=== PATIENT | female | born 1970 | race Caucasian/White ===

== ENCOUNTER 2020-10-23 15:27 | Inpatient (IN) ==
[2020-10-23] MEDS ORDERED: 0.9 % SODIUM CHLORIDE 1,000 ML IV ONE (15:46)
[2020-10-23] MEDS ORDERED: ONDANSETRON 4 MG/2 ML VIAL IV ONE ×2 (15:46→19:21)
[2020-10-23 16:40] LABS: POC Blood Urea Nitrogen 8 mg/dL (6-20); POC CO2 30 mmol/L (22-30); POC Calcium, Ionized 0.97 mmEq/L (1.16-1.32); POC Chloride 100 mEq/L (96-108); POC Creatinine 0.7 mg/dL (0.6-1.2); POC Glucose, Random 105 mg/dL (70-105); POC Hematocrit 32 % (36-48); POC Potassium 2.9 mEql/L (3.3-5.1); POC Sodium 138 mEq/L (133-145)
[2020-10-23] MEDS ORDERED: POTASSIUM CHLORIDE 20 MEQ in DEXTROSE 5% IN WATER 250 ML IV ONE (16:52)
[2020-10-23 17:06] LABS: Basophils # (Auto) 0 K/mcL (0.00-0.20); Basophils % (Auto) 0 % (0.0-2.0); Eosinophils # (Auto) 0 K/mcL (0.00-0.70); Eosinophils % (Auto) 0 % (0.0-7.0); Hemoglobin 12.3 g/dL (12.0-15.0); Lymphocytes # (Auto) 0.67 K/mcL (1.50-4.80); Mean Corpuscular HGB Conc 33.2 g/dL (31.0-36.0); Mean Platelet Volume 10.2 fL (7.4-10.4); Monocytes # (Auto) 0.26 K/mcL (0.10-0.90); Monocytes % (Auto) 8.6 % (1.0-12.0); Neutrophils % (Auto) 69.4 % (38.0-78.0); Platelet Count 132 K/mcL (140-440); Red Cell Distribution Width 13.1 % (11.5-14.5)
[2020-10-23 17:15] LABS: ALT/SGPT 23 U/L (<40); AST/SGOT 34 U/L (<32); Albumin 3.4 gm/dL (3.2-5.2); Albumin/Globulin Ratio 1.3 (1.0-2.3); Alkaline Phosphatase 59 U/L (39-117); Bilirubin,Total 0.7 mg/dL (0.1-1.0); Blood Urea Nitrogen 8 mg/dL (6-20); Calcium 8.1 mg/dL (8.6-10.4); Carbon Dioxide 29 mmol/L (22-30); Chloride 100 mmol/L (96-108); Globulin 2.6 gm/dL (2.2-3.7); Glomerular Filtration Rate 102; Glucose 106 mg/dL (70-105)
[2020-10-23] MEDS ORDERED: PROMETHAZINE 25 MG/ML VIAL IV ONE (17:30)
--- NOTE | 2020-10-23 19:50 | Emergency Department Note ---
Nausea/Vomiting/Diarrhea HPI General Chief complaint: Nausea/Vomiting/Diarrhea Stated complaint: N/V/D x7 days Time Seen by Provider: 10/23/20 15:45 Source: patient Mode of arrival: ambulatory Limitations: no limitations History of Present Illness HPI Narrative: Narrative: 50-year-old female presents with 7-day history of nausea, vomiting, diarrhea, and generally feeling poor. Has body aches and dry cough. No shortness of breath or chest pain. No difficulty breathing. She has had a fever of 101. States she just feels absolutely miserable and hard to explain. She was seen here yesterday and was hydrated and given nausea medication check. Her potassium was little bit low. They sent her home. She has not been tested for Covid. States she lives at home and she feels so terrible that she is afraid to stay home alone. Is very tearful. States she cannot describe it she is just miserable. No abdominal pain. No headache. No dysuria or frequency. No home treatments. Related Data Home Medications Medication Instructions Recorded Confirmed ferrous gluconate 324 mg (37.5 mg 324 mg PO QDAY tab 08/21/19 10/04/20 iron) tablet omeprazole magnesium 20 mg 20 mg PO QDAY 08/21/19 10/04/20 tablet,delayed release Previous Rx's Medication Instructions Recorded tolterodine 4 mg capsule,extended 4 mg PO QDAY #30 cap 02/26/20 release 24 hr potassium chloride 10 mEq 20 meq PO .COMPLEX #90 tab 07/27/20 tablet,extended release atorvastatin 20 mg tablet See Rx Instructions .ROUTE 08/22/20 .COMPLEX #30 unknown measurement unit code: tablet benazepril 10 mg tablet See Rx Instructions .ROUTE 08/22/20 .COMPLEX #60 unknown measurement unit code: tablet trazodone 50 mg tablet 100 mg PO QHS #60 tab 08/22/20 sertraline 100 mg tablet See Rx Instructions .ROUTE 08/23/20 .COMPLEX #60 tablet metoprolol succinate 50 mg See Rx Instructions .ROUTE 09/20/20 tablet,extended release 24 hr .COMPLEX #60 tablet hydrochlorothiazide 25 mg tablet See Rx Instructions .ROUTE 09/26/20 .COMPLEX #30 tab metformin 500 mg tablet,extended 500 mg PO QDAY #30 tab 10/04/20 release 24 hr sulfamethoxazole 800 1 tab PO BID 7 Days #14 tab 10/04/20 mg-trimethoprim 160 mg tablet ondansetron 4 mg PO Q6H PRN #12 tab 10/23/20 Allergies Allergy/AdvReac Type Severity Reaction Status Date / Time bupropion [From Wellbutrin] Allergy Unknown makes pt Verified 10/23/20 02:30 angry and jittery Review of Systems ROS ROS Narrative: Narrative: All systems ED: reviewed and negative except as stated. [facility] Narrative Patient History Narrative: Narrative: Medical/Surgical/Family History All Active Problems (Updated 10/23/20 @ 20:30 by PASCALE Luther) Gastroenteritis (Acute) Hypokalemia (Acute) Intractable nausea and vomiting (Acute) Diarrhea (Acute) URI (upper respiratory infection) (Acute) Morbid obesity (Acute) Depression (Chronic) Chronic headaches (Chronic) Allergic rhinitis (Chronic) Insulin resistance (Chronic) Fatigue (Chronic) Contact with and (suspected) exposure to mold (Chronic) Other allergic rhinitis (Chronic) Anemia, iron deficiency (Chronic) Edema, peripheral (Chronic) Urinary frequency (Chronic) Spleen enlarged (Chronic) Hyperlipidemia (Chronic) Anxiety (Chronic) Headache, tension type, chronic (Chronic) Hypertension (Chronic) Heartburn (Chronic) Hematuria (Chronic) Medical History Allergic rhinitis (Chronic) Anemia, iron deficiency (Chronic) Anxiety (Chronic) Chronic headaches (Chronic) Edema, peripheral (Chronic) Fatigue (Chronic) Headache, tension type, chronic (Chronic) Heartburn (Chronic) Hyperlipidemia (Chronic) Hypertension (Chronic) Insulin resistance (Chronic) Morbid obesity (Acute) Muscle spasms of neck (Resolved) Other allergic rhinitis (Chronic) Sinusitis (Resolved) Spleen enlarged (Chronic) Urinary frequency (Chronic) Urinary tract infection (Inactive) Wellness examination (Inactive) Surgical History History of section (Inactive 10/25/91) Family History Father Bladder cancer Heart disease Mother Hypertension Grandmother Breast cancer Maternal Colon cancer Unknown side Grandfather ETOH abuse Maternal Grandfather Diabetes mellitus Paternal Family/Other Colon cancer aunt Social History Smoking Status: Never smoker Alcohol Intake Frequency: does not drink Substance Use: does not use Exam Narrative Narrative: Narrative: General Limitations: no limitations General appearance: Present alert, malaise, obese and tearful Head Head: Present atraumatic and normocephalic Eye Eye: Present normal appearance; Absent conjunctival injection ENT ENT: Present mucous membranes moist Chest Chest: Present symmetric chest wall rise Respiratory Respiratory: Present normal lung sounds bilaterally; Absent respiratory distress, rales/crackles, wheezes, stridor and accessory muscle use Cardiovascular Cardiovascular: Present regular rate and normal heart sounds Adbominal Abdominal: Present soft and normal bowel sounds; Absent distention, tenderness, guarding, rebound and rigidity Neurological Neurological: Present alert and oriented X3 Psychiatric Psychiatric: Present normal affect, normal mood and tearful; Absent suicidal ideation Skin Skin: Present warm (WNL), dry, intact and normal color Course Course Course Narrative: Patient was given a dose of Zofran and still has nausea and vomiting. Was given a dose of Phenergan but nausea and vomiting continues. Given additional dose of Zofran. Still complaining of nausea. Covid is pending. Vital Signs Vital signs: Vital Signs Temperature 99.7 F H 10/23/20 15:28 Pulse Rate 109 H 10/23/20 15:28 Respiratory Rate 22 10/23/20 15:28 Blood Pressure 144/90 10/23/20 15:28 Pulse Oximetry (%) 96 10/23/20 15:28 Temperature 99.7 F H 10/23/20 15:28 Pulse Rate 106 H 10/23/20 19:49 Respiratory Rate 24 H 10/23/20 19:49 Blood Pressure 114/67 10/23/20 19:49 Pulse Oximetry (%) 94 10/23/20 19:49 [facility] MDM Narrative Medical decision making narrative: Narrative: Patient has continued to have intractable nausea and vomiting despite multiple doses of Zofran and some Phenergan. At 2029 I did speak with hospitalist, Dr. Simms who agrees to accept this patient. I will place ED transition orders for observation. Plan is for IV hydration and antiemetics. This is presumed Covid positive and rapid is pending. Lab Data Lab results reviewed: Yes I reviewed the patient's lab results. Result diagrams: 10/23/20 16:04 10/23/20 16:04 Labs: Lab Results 10/23/20 10/23/20 10/23/20 Range/Units 16:04 16:04 16:04 WBC 3.0 L (4.5-11.0) K/mcL RBC 4.30 (4.00-5.20) M/mcL Hgb 12.3 (12.0-15.0) g/dL Hct 37.0 (36.0-48.0) % POC Hct 32 L (36-48) % MCV 86.0 (80.0-100.0) fL MCH 28.6 (26.0-34.0) pg MCHC 33.2 (31.0-36.0) g/dL RDW 13.1 (11.5-14.5) % Plt Count 132 L (140-440) K/mcL MPV 10.2 (7.4-10.4) fL Neut % (Auto) 69.4 (38.0-78.0) % Lymph % (Auto) 22.0 (15.0-49.0) % [place] % (Auto) 8.6 (1.0-12.0) % Eos % (Auto) 0 (0.0-7.0) % Baso % (Auto) 0 (0.0-2.0) % Lymph # (Auto) 0.67 L (1.50-4.80) K/mcL [place] # (Auto) 0.26 (0.10-0.90) K/mcL Eos # (Auto) 0 (0.00-0.70) K/mcL Baso # (Auto) 0 (0.00-0.20) K/mcL Absolute Neutrophils 2.11 (1.80-8.00) K/mcL VBG Lactic Acid 1.0 (0.5-2.0) mmol/L POC Sodium 138 (133-145) mEq/L Sodium 139 (133-145) mmol/L POC Potassium 2.9 L* (3.3-5.1) mEql/L Potassium 3.1 L (3.3-5.1) mmol/L POC Chloride 100 (96-108) mEq/L Chloride 100 (96-108) mmol/L Carbon Dioxide 29 (22-30) mmol/L POC Total CO2 30 (22-30) mmol/L Anion Gap 10.0 (8.0-16.0) POC BUN 8 (6-20) mg/dL BUN 8 (6-20) mg/dL Creatinine 0.7 (0.6-1.1) mg/dL POC Creatinine 0.7 (0.6-1.2) mg/dL GFR Calculation 102 Glucose 106 H (70-105) mg/dL POC Glucose 105 (70-105) mg/dL Calcium 8.1 L (8.6-10.4) mg/dL POC WB Ioniz Calcium 0.97 L (1.16-1.32) mmEq/L Total Bilirubin 0.7 (0.1-1.0) mg/dL AST 34 H (<32) U/L ALT 23 (<40) U/L Alkaline Phosphatase 59 (39-117) U/L Total Protein 6.0 (5.9-8.4) gm/dL Albumin 3.4 (3.2-5.2) gm/dL Globulin 2.6 (2.2-3.7) gm/dL Albumin/Globulin Ratio 1.3 (1.0-2.3) Lipase 30 (7-60) U/L Radiology Data Radiology results reviewed: Yes I reviewed the patient's radiology results. Discharge Plan Patient/Caregiver Discharge Instructions Pt seen by GENERAL OPHTHALMOLOGIST/PA only: Yes Clinical Impression: Intractable nausea and vomiting, Diarrhea, URI (upper respiratory infection) Patient Disposition: Xfer As Outpt/Obs ([facility]) Condition: Fair Follow up with: Man Santos ARNP [Primary Care Provider] - Prescriptions: No Action sertraline 100 mg tablet See Rx Instructions .ROUTE .COMPLEX Qty: 60 RF: 4 sulfamethoxazole-trimethoprim [Bactrim DS] 800-160 mg tablet 1 tab PO BID 7 Days Qty: 14 RF: 0 metformin 500 mg tablet extended release 24 hr 500 mg PO QDAY Qty: 30 RF: 0 tolterodine 4 mg capsule,extended release 24hr 4 mg PO QDAY Qty: 30 RF: 11 potassium chloride 10 mEq tablet extended release 20 meq PO .COMPLEX Qty: 90 RF: 3 trazodone 50 mg tablet 100 mg PO QHS Qty: 60 RF: 3 atorvastatin 20 mg tablet See Rx Instructions .ROUTE .COMPLEX Qty: 30 RF: 3 benazepril 10 mg tablet See Rx Instructions .ROUTE .COMPLEX Qty: 60 RF: 1 metoprolol succinate 50 mg tablet extended release 24 hr See Rx Instructions .ROUTE .COMPLEX Qty: 60 RF: 0 hydrochlorothiazide 25 mg tablet See Rx Instructions .ROUTE .COMPLEX Qty: 30 RF: 0 omeprazole magnesium 20 mg tablet,delayed release 20 mg tablet,delayed release (DR/EC) 20 mg PO QDAY RF: 0 ferrous gluconate 324 mg (37.5 mg iron) tablet 324 mg PO QDAY RF: 0 ondansetron 4 mg tablet,disintegrating 4 mg PO Q6H PRN (Reason: nausea and vomiting) Qty: 12 RF: 0
[2020-10-23] MEDS ORDERED: ONDANSETRON 4 MG/2 ML VIAL IV PRN (20:41)
[2020-10-23] MEDS ORDERED: ACETAMINOPHEN 325 MG TABLET PO PRN ×3 (20:41→22:42)
[2020-10-23] MEDS ORDERED: PROMETHAZINE 25 MG/ML VIAL IV PRN ×2 (20:41→22:42)
[2020-10-23] MEDS ORDERED: 0.9 % SODIUM CHLORIDE 1,000 ML IV SCH ×2 (20:45→21:00)
--- NOTE | 2020-10-23 20:59 | Internal Med History&Physical ---
HPI History of Present Illness Patient information: Note initiated : 10/23/20 at 8:59 pm Service Date, if different from initiated Date: [] Patient: Lisa Cruz a 50 y/o F admitted on for N/V/D x7 days. Chief Complaint: Nausea vomiting diarrhea History of present illness: Ms. Cruz is a 50 year old F morbidly obese with a BMI over 53 who presents the second time with symptoms of worsening nausea vomiting along with diarrhea weakness that has evolved over the last 8 to 9 days. 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 She denies any precipitating events but endorses to gradually progressive loss of appetite along with nausea and not feeling well unable to take anything by mouth. Symptoms progressed to the point she could barely function. She presented to the ER initial work-up was unremarkable during the prior visit and was discharged home however with worsening symptoms he presents again. During today's work-up she was found to be Covid positive along with bilateral chest infiltrates. Abdominal CT was unremarkable for acute abdominal process. Patient was started on dexamethasone/remdesivir and subsequently hospitalist service was consulted for Covid pneumonia. At the time of evaluation patient is alert and oriented. She was able to answer most the questions. She denies recent exposure to sick contacts. She lives alone. She denies loss of taste or smell but has been generally feeling poorly. She denies joint aches/skin rash/headache, photophobia or vision changes. Review of systems A 10 point review system was performed and is negative except for ones discussed above PFSH PFSH All Active Problems (Updated 10/23/20 @ 20:30 by Landy Rivas [facility]) Gastroenteritis (Acute) Hypokalemia (Acute) Intractable nausea and vomiting (Acute) Diarrhea (Acute) URI (upper respiratory infection) (Acute) Morbid obesity (Acute) Depression (Chronic) Chronic headaches (Chronic) Allergic rhinitis (Chronic) Insulin resistance (Chronic) Fatigue (Chronic) Contact with and (suspected) exposure to mold (Chronic) Other allergic rhinitis (Chronic) Anemia, iron deficiency (Chronic) Edema, peripheral (Chronic) Urinary frequency (Chronic) Spleen enlarged (Chronic) Hyperlipidemia (Chronic) Anxiety (Chronic) Headache, tension type, chronic (Chronic) Hypertension (Chronic) Heartburn (Chronic) Hematuria (Chronic) Medical History Allergic rhinitis (Chronic) Anemia, iron deficiency (Chronic) Anxiety (Chronic) Chronic headaches (Chronic) Edema, peripheral (Chronic) Fatigue (Chronic) Headache, tension type, chronic (Chronic) Heartburn (Chronic) Hyperlipidemia (Chronic) Hypertension (Chronic) Insulin resistance (Chronic) Morbid obesity (Acute) Muscle spasms of neck (Resolved) Other allergic rhinitis (Chronic) Sinusitis (Resolved) Spleen enlarged (Chronic) Urinary frequency (Chronic) Urinary tract infection (Inactive) Wellness examination (Inactive) Surgical History History of section (Inactive 10/25/91) Family History Father Bladder cancer Heart disease Mother Hypertension Grandmother Breast cancer Maternal Colon cancer Unknown side Grandfather ETOH abuse Maternal Grandfather Diabetes mellitus Paternal Family/Other Colon cancer aunt Social History household members: family lives independently: No marital status: occupational status: employed occupation: [id number] other: lives with her parents physical activity: none smoking status: Never smoker alcohol intake frequency: does not drink substance use type: does not use seatbelt use: always MEDS/ALLERGIES Home Medications and Allergies Home Medications Medication Instructions Recorded Confirmed Type ferrous gluconate 324 mg (37.5 mg 324 mg PO QDAY tab 08/21/19 10/23/20 History iron) tablet tolterodine 4 mg capsule,extended 4 mg PO QDAY #30 cap 02/26/20 10/24/20 Rx release 24 hr potassium chloride 10 mEq 20 meq PO .COMPLEX #90 tab 07/27/20 10/24/20 Rx tablet,extended release atorvastatin 20 mg tablet See Rx Instructions .ROUTE 08/22/20 10/23/20 Rx .COMPLEX #30 unknown measurement unit code: tablet benazepril 10 mg tablet See Rx Instructions .ROUTE 08/22/20 10/23/20 Rx .COMPLEX #60 unknown measurement unit code: tablet trazodone 50 mg tablet 100 mg PO QHS #60 tab 08/22/20 10/24/20 Rx sertraline 100 mg tablet See Rx Instructions .ROUTE 08/23/20 10/24/20 Rx .COMPLEX #60 tablet metoprolol succinate 50 mg See Rx Instructions .ROUTE 09/20/20 10/23/20 Rx tablet,extended release 24 hr .COMPLEX #60 tablet hydrochlorothiazide 25 mg tablet See Rx Instructions .ROUTE 09/26/20 10/23/20 Rx .COMPLEX #30 tab metformin 500 mg tablet,extended 500 mg PO QDAY #30 tab 10/04/20 10/23/20 Rx release 24 hr ondansetron 4 mg PO Q6H PRN #12 tab 10/23/20 10/23/20 Rx omeprazole magnesium 20 mg PO QDAY 10/24/20 10/24/20 History Allergies Allergy/AdvReac Type Severity Reaction Status Date / Time bupropion [From Wellbutrin] AdvReac Mild makes pt Verified 10/24/20 06:04 angry and jittery EXAM Constitutional Vitals: Temp Pulse Resp BP Pulse Ox 99.7 F H 107 H 17 115/66 98 10/23/20 15:28 10/23/20 20:34 10/23/20 20:46 10/23/20 20:46 10/23/20 20:34 Morbidly obese. Anxious Head normocephalic Oral cavity moist No ear nose discharge Eye movement symmetrical Neck supple no lymphadenopathy S1-S2 regular/tachycardia Nonlabored breathing Nondistended nontender abdomen Lower extremity no cyanosis clubbing or joint swelling Skin no suspicious lesion Psych no hallucination, cooperative Neuro normal higher function DATA Data Completed and Pending Labs: Labs from last 24 hours 10/23/20 10/23/20 10/23/20 20:19 16:08 16:04 WBC RBC Hgb Hct POC Hct MCV MCH MCHC RDW Plt Count MPV Neut % (Auto) Lymph % (Auto) Ray % (Auto) Eos % (Auto) Baso % (Auto) Lymph # (Auto) Ray # (Auto) Eos # (Auto) Baso # (Auto) Absolute Neutrophils VBG Lactic Acid 1.0 POC Sodium Sodium POC Potassium Potassium POC Chloride Chloride Carbon Dioxide POC Total CO2 Anion Gap POC BUN BUN Creatinine POC Creatinine GFR Calculation Glucose POC Glucose Calcium POC WB Ioniz Calcium Total Bilirubin AST ALT Alkaline Phosphatase Total Protein Albumin Globulin Albumin/Globulin Ratio Lipase SARS-CoV-2 (PCR) Pending Pending 10/23/20 10/23/20 16:04 16:04 WBC 3.0 L RBC 4.30 Hgb 12.3 Hct 37.0 POC Hct 32 L MCV 86.0 MCH 28.6 MCHC 33.2 RDW 13.1 Plt Count 132 L MPV 10.2 Neut % (Auto) 69.4 Lymph % (Auto) 22.0 Ray % (Auto) 8.6 Eos % (Auto) 0 Baso % (Auto) 0 Lymph # (Auto) 0.67 L Ray # (Auto) 0.26 Eos # (Auto) 0 Baso # (Auto) 0 Absolute Neutrophils 2.11 VBG Lactic Acid POC Sodium 138 Sodium 139 POC Potassium 2.9 L* Potassium 3.1 L POC Chloride 100 Chloride 100 Carbon Dioxide 29 POC Total CO2 30 Anion Gap 10.0 POC BUN 8 BUN 8 Creatinine 0.7 POC Creatinine 0.7 GFR Calculation 102 Glucose 106 H POC Glucose 105 Calcium 8.1 L POC WB Ioniz Calcium 0.97 L Total Bilirubin 0.7 AST 34 H ALT 23 Alkaline Phosphatase 59 Total Protein 6.0 Albumin 3.4 Globulin 2.6 Albumin/Globulin Ratio 1.3 Lipase 30 SARS-CoV-2 (PCR) A/P Narrative A/P Narrative: * COVID-19 pneumonia with acute viral syndrome. Start remdesivir/dexamethasone. Continue supportive management/contact precautions. * Nausea vomiting secondary to acute viral syndrome-continue close monitoring. Supportive management * Hypokalemia 2.9 on replacement * History of anxiety disorder continue sertraline/trazodone * DM type II continue CC diet/sliding scale insulin * History of hypertension continue benazepril/hydrochlorothiazide/metoprolol * GERD continue PPI * Full code * prophylaxis twice daily Lovenox Plan * Serial imaging/ABG/coag inflammatory markers * Remdesivir/dexamethasone/thrombosis prophylaxis * Pre-existing medical condition management home meds * Directed therapies/nutrition support/early mobilization * Crystalloids supportive management * Electrolyte replacement * Pre-existing medical Condition management home medication Time Spent With Patient Time: Total time spent is greater than 50% in coordination of care (as documented) at patient's floor/unit and/or counseling patient:
[2020-10-23] MEDS ORDERED: POTASSIUM CHLORIDE 40 MEQ in DEXTROSE 5% IN WATER 500 ML IV PRN (22:42)
[2020-10-23] MEDS ORDERED: CALCIUM CHLORIDE 1,000 MG/10 ML SYRINGE IV PRN (22:42)
[2020-10-23] MEDS ORDERED: ONDANSETRON 4 MG ODT TABLET SL PRN (22:42)
[2020-10-23] MEDS ORDERED: MAGNESIUM SULFATE 2 GM/50 ML BAG IV PRN (22:42)
[2020-10-23] MEDS ORDERED: POLYETHYLENE GLYCOL 3350 17 GM PACKET PO PRN (22:42)
[2020-10-23] MEDS ORDERED: hydrALAZINE 20 MG/ML VIAL IV PRN (22:42)
[2020-10-23] MEDS ORDERED: ACETAMINOPHEN 650 MG/65 ML BAG IV PRN (22:42)
[2020-10-23] MEDS ORDERED: BISACODYL 10 MG SUPP.RECT PR PRN (22:42)
[2020-10-23] MEDS ORDERED: HEPARIN 5,000 UNIT/ML VIAL SQ SCH (22:42)
[2020-10-23] MEDS ORDERED: DEXAMETHASONE 10 MG/ML VIAL IV ONE (22:54)
[2020-10-23] MEDS ORDERED: REMDESIVIR 200 MG in 0.9 % SODIUM CHLORIDE 250 ML IV ONE (22:54)
[2020-10-23] MEDS ORDERED: DEXAMETHASONE 10 MG/ML VIAL ONE (23:04)
[2020-10-23] MEDS: 0.9 % SODIUM CHLORIDE 10 ML SYRINGE IV SCH (23:30)
[2020-10-23] MEDS: 0.9 % SODIUM CHLORIDE 1,000 ML IV SCH (23:30)
[2020-10-23] MEDS: ONDANSETRON 4 MG/2 ML VIAL IV PRN (23:58)
[2020-10-23] MEDS ORDERED: ONDANSETRON 4 MG/2 ML VIAL ONE (23:58)
[2020-10-24] MEDS: DOCUSATE SODIUM 100 MG CAPSULE PO SCH ×3 (00:41→22:35)
[2020-10-24] MEDS: SENNOSIDES/DOCUSATE SODIUM 1 TAB TABLET PO SCH ×2 (00:42→22:35)
[2020-10-24] MEDS: 0.9 % SODIUM CHLORIDE 1,000 ML IV SCH ×5 (01:10→22:44)
[2020-10-24] MEDS: MELATONIN 3 MG TABLET PO PRN (01:29)
[2020-10-24] MEDS ORDERED: MELATONIN 3 MG TABLET PO ONE (01:32)
[2020-10-24] MEDS ORDERED: SERTRALINE 100 MG TABLET PO ONE (02:30)
[2020-10-24] MEDS: 0.9 % SODIUM CHLORIDE 10 ML SYRINGE IV SCH ×3 (05:13→22:35)
--- NOTE | 2020-10-24 05:45 | XRay Report ---
INDICATION: fever, weakness TECHNIQUE: AP portable semiupright chest x-ray COMPARISON: Chest x-ray dated 05/02/2018 FINDINGS: Lungs:There are irregular patchy infiltrates bilaterally, right worse than left. Findings are new since previous examination. Appearance is consistent with pneumonia and covid pneumonia should be considered. Heart, vascular:No significant cardiomegaly. Pulmonary vascularity is normal. No pulmonary edema or pulmonary congestion Mediastinum, josé manuel:No mediastinal widening. No hilar mass Pleura:No pleural fluid. No pleural-based mass or calcification Skeletal:Negative. IMPRESSION: 1. Patchy infiltrates, right worse than left 2. Appearance is consistent with pneumonia and covid should be considered Interpreted and Authenticated by: Blaise Gomez 10/24/20
--- NOTE | 2020-10-24 06:09 | Cat Scan Report ---
INDICATION: Intractable nausea and vomiting COMPARISON: Previous CT scan dated 02/18/2010 TECHNIQUE: Axial images were obtained through the abdomen and pelvis. Sagittally and coronally reformatted images. FINDINGS: Examination was initially interpreted by [facility] Lung bases:Patchy infiltrates at both lung bases. Appearance is consistent with pneumonia and covid pneumonia is possible Liver:Negative to the limits of noncontrast enhanced examination. Liver contour is smooth without evidence for cirrhosis Gallbladder, bilary:No calcified gallstones. No gallbladder wall thickening. No pericholecystic fluid. No dilated bile ducts Spleen:There is splenomegaly. Spleen measures 17.8 x 17.8 x 11.4 cm. Increased since 02/18/2010. Spleen measured 15 cm maximally at that time. No focal intrasplenic abnormality. There are no retroperitoneal varices. No paraesophageal varices identified. Pancreas:No pancreatic mass. No peripancreatic abnormality Adrenal glands:Negative Kidneys, ureters, bladder:No obstructing or nonobstructing renal calculi. No hydronephrosis. No renal mass No hydroureter. No ureteral stone No bladder calculus Gastrointestinal:No significant diverticulosis or evidence for diverticulitis. No detectable colonic mass No mechanical small bowel obstruction. No small bowel dilatation. Appendix: The appendix is negative Vascular:No abdominal aortic aneurysm Lymphatic:No retroperitoneal adenopathy. No significant mesenteric adenopathy. Mesentery, peritoneum:No free intraperitoneal fluid. No intra-abdominal abscess. No pneumoperitoneum Reproductive:Uterus is anteflexed. No adnexal mass Musculoskeletal:No lumbar compression fractures. No lytic lesions. Sacrum, pelvis, hips are negative. No significant anterior abdominal wall or inguinal hernia IMPRESSION: 1. Splenomegaly, slightly increased since 2009 2. Abnormal lung bases consistent with pneumonia. Covid pneumonia is possible 3. No other intra-abdominal abnormality The exam was performed using radiation dose optimization techniques including, but not limited to, automated exposure control, adjustment of the mA and/or kV according to patient size and use of iterative reconstruction technique. Interpreted and Authenticated by: Blaise Gomez 10/24/20
[2020-10-24 06:20] LABS: Basophils # (Auto) 0 K/mcL (0.00-0.20); Basophils % (Auto) 0 % (0.0-2.0); Eosinophils # (Auto) 0 K/mcL (0.00-0.70); Eosinophils % (Auto) 0 % (0.0-7.0); Hematocrit 34.1 % (36.0-48.0); Hemoglobin 11.2 g/dL (12.0-15.0); Lymphocytes # (Auto) 0.45 K/mcL (1.50-4.80); Lymphocytes % (Auto) 17.6 % (15.0-49.0); Mean Cell Volume 87.2 fL (80.0-100.0); Mean Corpuscular HGB Conc 32.8 g/dL (31.0-36.0); Mean Platelet Volume 10.4 fL (7.4-10.4); Monocytes # (Auto) 0.17 K/mcL (0.10-0.90); Monocytes % (Auto) 6.7 % (1.0-12.0); Neutrophils % (Auto) 75.7 % (38.0-78.0); Platelet Count 130 K/mcL (140-440); RBC 3.91 M/mcL (4.00-5.20); Red Cell Distribution Width 13.1 % (11.5-14.5); WBC 2.6 K/mcL (4.5-11.0)
[2020-10-24 06:48] LABS: ALT/SGPT 25 U/L (<40); AST/SGOT 33 U/L (<32); Albumin 3.2 gm/dL (3.2-5.2); Albumin/Globulin Ratio 1.3 (1.0-2.3); Alkaline Phosphatase 54 U/L (39-117); Bilirubin,Direct < 0.2 mg/dL (<0.3); Bilirubin,Total 0.6 mg/dL (0.1-1.0); Blood Urea Nitrogen 7 mg/dL (6-20); Calcium 7.4 mg/dL (8.6-10.4); Carbon Dioxide 27 mmol/L (22-30); Chloride 104 mmol/L (96-108); Globulin 2.4 gm/dL (2.2-3.7); Glomerular Filtration Rate 102; Glucose 138 mg/dL (70-105); Lactate Dehydrogenase 214 U/L (135-225); Phosphorous 2.1 mg/dL (2.5-4.5); Triglycerides 50 mg/dL (<150); Uric Acid 5.8 mg/dL (2.5-8.0)
[2020-10-24] MEDS: MULTIVIT,THER IRON,CA,FA & MIN 1 TABLET PO SCH ×2 (08:32→10:38)
[2020-10-24] MEDS ORDERED: ONDANSETRON (PP) 4 MG TABLET PO PRN (08:37)
[2020-10-24] MEDS ORDERED: NEUTRA PHOS 1 PACKET PO PRN ×2 (08:38→11:03)
[2020-10-24] MEDS ORDERED: POTASSIUM CHLORIDE 10 MEQ TABLET PO SCH (08:45)
[2020-10-24] MEDS: OMEPRAZOLE 20 MG CAPSULE PO SCH (10:20)
[2020-10-24] MEDS: ONDANSETRON 4 MG/2 ML VIAL IV PRN (10:21)
[2020-10-24] MEDS: POTASSIUM CHLORIDE 20 MEQ PACKET PO PRN (10:25)
[2020-10-24] MEDS: DEXAMETHASONE 4 MG TABLET PO SCH (10:28)
[2020-10-24] MEDS: metFORMIN 500 MG TAB.XL.24H PO SCH (10:30)
[2020-10-24] MEDS: HYDROCHLOROTHIAZIDE 25 MG TABLET PO SCH (10:33)
[2020-10-24] MEDS: METOPROLOL SUCCINATE 50 MG TAB.XL.24H PO SCH (10:33)
[2020-10-24] MEDS: LISINOPRIL 20 MG TABLET PO SCH (10:33)
[2020-10-24] MEDS: SERTRALINE 100 MG TABLET PO SCH ×2 (10:34→22:32)
[2020-10-24] MEDS: TOLTERODINE 2 MG CAP.XL.24H PO SCH (10:35)
[2020-10-24] MEDS: FERROUS GLUCONATE 324 MG TABLET PO SCH (10:36)
[2020-10-24] MEDS: ENOXAPARIN 40 MG/0.4 ML SYRINGE SQ SCH ×2 (10:39→22:32)
--- NOTE | 2020-10-24 10:46 | Internal Med Progress Note ---
SUBJECTIVE Subjective Patient information: Note initiated : 10/24/20 at 10:42 am Service Date, if different from initiated Date: [] Patient: Lisa Cruz a 50 y/o F admitted on 10/24/20 for N/V/D x7 days. Chief Complaint: [] Interval history: History of present illness: Ms. Cruz is a 50 year old F morbidly obese with a BMI over 53 who presents the second time with symptoms of worsening nausea vomiting along with diarrhea weakness that has evolved over the last 8 to 9 days. Patient works at ICU as an floor scrubber. She denies any precipitating events but endorses to gradually progressive loss of appetite along with nausea and not feeling well unable to take anything by mouth. Symptoms progressed to the point she could barely function. She presented to the ER initial work-up was unremarkable during the prior visit and was discha rged home however with worsening symptoms he presents again. During today's work-up she was found to be Covid positive along with bilateral chest infiltrates. Abdominal CT was unremarkable for acute abdominal process. Patient was started on dexamethasone/remdesivir and subsequently hospitalist se mcgraw was consulted for Covid pneumonia. At the time of evaluation patient is alert and oriented. She was able to answer most the questions. She denies recent exposure to sick contacts. She lives alone. She denies loss of taste or smell but has been generally feeling poorly. She denies joint aches/skin rash/headache, photophobia or vision changes. 10/24-room. Improve nauseousness previous night and now tolerating ice chips/water. Bilateral patchy infiltrates on chest imaging. Continue r emdesivir/dexamethasone. Restart home medications. Leukopenic with white count 2.6/low platelets secondary to Covid syndrome. Potassium improved from 2.9-3.4 on replacement. Phosphorus 2.1 on replacement. LFTs stable. Constitutional Vitals: Vital Signs Temp Pulse Resp BP Pulse Ox 98.9 F 98 H 20 138/67 94 10/24/20 07:16 10/24/20 07:16 10/24/20 07:16 10/24/20 07:16 10/24/20 07:16 Period Temp Pulse Resp BP Sys/Cruz Pulse Ox Last 24 Hr 98.2 F-99.7 F 91-113 15-28 105-144/50-111 94-100 Intake and Output 10/23/20 10/24/20 10/24/20 21:59 05:59 13:59 Intake Total 2534 401 5387 Output Total 300 Balance 1260 0 1440 Weight 154.221 kg 158.712 kg alert oriented Minimal anxiety Nonlabored breathing No lymphedema Intake & Output: Intake & Output 10/23/20 10/24/20 10/24/20 21:59 05:59 13:59 Intake Total 0719 113 7287 Output Total 300 Balance 1260 0 1440 Weight 154.221 kg 158.712 kg Intake: IV 1260 1000 Sodium Chloride 0.9% 1,000 ml @ 1000 1000 150 mls/hr IV .Q6H40M [facility] Rx#: [id number] Potassium Chloride 20 Meq In 260 Dextrose 5% in Water 250 ml @ 130 mls/hr IV ONCE ONE Rx#: [id number] Oral 300 440 Output: Void Amount 300 Other: Meal Breakfast Percent of Meal Consumed Refused Feeding Ability Independent Stool Consistency Loose # Voids 1 OBJ DATA Labs CBC & Chem 7: 10/24/20 05:28 10/24/20 05:28 Labs: Abnormal Lab Results 10/24/20 10/24/20 10/23/20 05:28 05:28 20:19 WBC 2.6 L RBC 3.91 L Hgb 11.2 L Hct 34.1 L POC Hct Plt Count 130 L Lymph # (Auto) 0.45 L POC Potassium Potassium Glucose 138 H Calcium 7.4 L POC WB Ioniz Calcium Phosphorus 2.1 L AST 33 H Total Protein 5.6 L SARS-CoV-2 (PCR) Positive A 10/23/20 10/23/20 16:04 16:04 WBC 3.0 L RBC Hgb Hct POC Hct 32 L Plt Count 132 L Lymph # (Auto) 0.67 L POC Potassium 2.9 L* Potassium 3.1 L Glucose 106 H Calcium 8.1 L POC WB Ioniz Calcium 0.97 L Phosphorus AST 34 H Total Protein SARS-CoV-2 (PCR) Meds: Medications Acetaminophen (Tylenol) 650 mg PO Q6HP PRN; Protocol PRN Reason: Per Pain Protocol/Fever > 101 Atorvastatin Calcium (Lipitor) 20 mg PO HS [facility] Bisacodyl (Dulcolax) 10 mg NM Q2-3DAYS PRN PRN Reason: Constipation Calcium Chloride (Calcium Chloride) 1,000 mg IV ONCE PRN PRN Reason: CA+ = or < 7.8 Stop: 10/24/20 12:00 Dexamethasone (Decadron) 6 mg PO DAILY [facility] Last Admin: 10/24/20 10:28 Dose: 6 mg Documented by: Docusate Sodium (Colace) 100 mg PO BID [facility] Last Admin: 10/24/20 07:03 Dose: Not Given Documented by: Enoxaparin Sodium (Lovenox) 40 mg SQ BID [facility] Last Admin: 10/24/20 10:39 Dose: 40 mg Documented by: Ferrous Gluconate (Fergon) 324 mg PO QDAY [facility] Last Admin: 10/24/20 10:36 Dose: 324 mg Documented by: Hydralazine HCl (Apresoline) 10 mg IV Q4-6HP PRN PRN Reason: Hypertension Hydrochlorothiazide (Oretic) 25 mg PO DAILY [facility] Last Admin: 10/24/20 10:33 Dose: 25 mg Documented by: Sodium Chloride (Sodium Chloride 0.9%) 1,000 mls @ 20 mls/hr IV .Q24H [facility] Last Admin: 10/23/20 23:30 Dose: 20 mls/hr Documented by: Sodium Chloride (Sodium Chloride 0.9%) 1,000 mls @ 150 mls/hr IV .Q6H40M [facility] Last Admin: 10/24/20 08:14 Dose: 150 mls/hr Documented by: Potassium Chloride 40 meq/ (Dextrose) 520 mls @ 130 mls/hr IV UD PRN PRN Reason: K+ = or < 3.5 Acetaminophen (Ofirmev) 650 mg in 65 mls @ 130 mls/hr IV Q6HP PRN; Protocol PRN Reason: Per Pain Protocol/Fever > 101 Magnesium Sulfate (Magnesium Sulfate) 2 gm in 50 mls @ 50 mls/hr IV UD PRN PRN Reason: MG = or < 1.7 REMDESIVIR 100 mg/ Sodium (Chloride) 250 mls @ 500 mls/hr IV Q24H [facility] Stop: 10/27/20 15:29 Iron Carb/Multivit/[place]/Folic Acid (Multivitamin W/Minerals) 1 tab PO DAILY [facility] Last Admin: 10/24/20 10:38 Dose: 1 tab Documented by: Lisinopril (Zestril) 20 mg PO DAILY [facility] Last Admin: 10/24/20 10:33 Dose: 20 mg Documented by: Melatonin (Melatonin 3mg Tablet) 3 mg PO HSP PRN PRN Reason: Insomnia Last Admin: 10/24/20 01:29 Dose: 3 mg Documented by: Metformin HCl (Glucophage) 500 mg PO QAC [facility] Last Admin: 10/24/20 10:30 Dose: 500 mg Documented by: Metoprolol Succinate (Toprol Xl) 50 mg PO DAILY [facility] Last Admin: 10/24/20 10:33 Dose: 50 mg Documented by: Omeprazole (Prilosec) 20 mg PO ACB [facility] Last Admin: 10/24/20 10:20 Dose: 20 mg Documented by: Ondansetron HCl (Zofran) 4 mg IV Q4HP PRN; Protocol PRN Reason: Nausea And Vomiting Last Admin: 10/24/20 10:21 Dose: 4 mg Documented by: Ondansetron HCl (Zofran Odt) 4 mg SL Q4-6HP PRN; Protocol PRN Reason: Nausea And Vomiting Polyethylene Glycol (Miralax) 17 gm PO DAILYP PRN PRN Reason: Constipation Potassium Chloride (Klor-Con) 40 meq PO DAILYP PRN PRN Reason: K+ < 3.5 Last Admin: 10/24/20 10:25 Dose: 40 meq Documented by: Potassium Chloride (Kdur) [facility] Potassium Chloride (Kdur) 10 meq PO QPMCC [facility] Potassium/Phosphorus/Sodium (Neutra Phos) 2 packet PO DAILY PRN PRN Reason: PHOS <2.5 Promethazine HCl (Phenergan) 12.5 mg IV Q4-6HP PRN PRN Reason: Nausea And Vomiting Senna/Docusate Sodium (Senna Plus Tablet) 1 tab PO HS [facility] Last Admin: 10/24/20 00:42 Dose: Not Given Documented by: Sertraline HCl (Zoloft) 100 mg PO BID [facility] Last Admin: 10/24/20 10:34 Dose: 100 mg Documented by: Sodium Chloride (Saline Flush) 10 ml IV Q8 [facility] Last Admin: 10/24/20 05:13 Dose: Not Given Documented by: Tolterodine Tartrate (Detrol La) 4 mg PO QDAY [facility] Last Admin: 10/24/20 10:35 Dose: 4 mg Documented by: Trazodone HCl (Desyrel) 100 mg PO QHS [facility] A/P Narrative A/P Narrative: * COVID-19 pneumonia with acute viral syndrome with leukopenia/thrombocytopenia. Continue remdesivir/dexamethasone. Continue supportive management/contact precautions. * Nausea vomiting secondary to acute viral syndrome-continue supportive management * Hypokalemia improving with replacement now 3.4 * Low phosphorus on replacement * History of anxiety disorder continue sertraline/trazodone * DM type II continue CC diet/sliding scale insulin * History of hypertension continue benazepril/hydrochlorothiazide/metoprolol * GERD continue PPI * Full code * prophylaxis twice daily Lovenox Plan * Serial imaging/coag inflammatory markers * Remdesivir/dexamethasone/thrombosis prophylaxis * Electrolyte replacement as indicated * Pre-existing medical condition management home meds * Directed therapies/nutrition support/early mobilization * Crystalloids supportive management * Pre-existing medical Condition management home medication Time Spent With Patient Time: Total time spent is greater than 50% in coordination of care (as documented) at patient's floor/unit and/or counseling patient: QUALITY Stroke Symptom Onset Unknown: No VTE Deep Vein Thrombosis/Pulmonary Embolism Present on Admission: No
[2020-10-24] MEDS: REMDESIVIR 100 MG in 0.9 % SODIUM CHLORIDE 250 ML IV SCH (14:50)
[2020-10-24] MEDS: POTASSIUM CHLORIDE 10 MEQ TABLET PO SCH (16:55)
[2020-10-24] MEDS ORDERED: DEXTROSE 50% 50 ML VIAL IV PRN (17:26)
[2020-10-24] MEDS ORDERED: DEXTROSE 31 GM ORAL.SUSP PO PRN (17:26)
[2020-10-24] MEDS: ATORVASTATIN 20 MG TABLET PO SCH (22:32)
[2020-10-24] MEDS: traZODone HCL 50 MG TABLET PO SCH (22:32)
[2020-10-24] MEDS: INSULIN LISPRO 1 UNIT/0.01 ML UNIT SQ SCH (22:35)
[2020-10-25] MEDS: 0.9 % SODIUM CHLORIDE 1,000 ML IV SCH ×5 (02:14→22:48)
[2020-10-25] MEDS: 0.9 % SODIUM CHLORIDE 10 ML SYRINGE IV SCH ×3 (05:39→22:06)
--- NOTE | 2020-10-25 06:56 | XRay Report ---
INDICATION: Interval Change TECHNIQUE: AP portable upright chest x-ray COMPARISON: Previous chest x-rays dated 10/23/2020, 05/02/2018 FINDINGS: Lungs:Bilateral parenchymal infiltrates with predominantly peripheral distribution. Infiltrates are essentially unchanged since 10/23/2020 but new since 05/02/2018. Appearance is consistent with covid pneumonia. No parenchymal consolidation. Heart, vascular:No significant cardiomegaly. Pulmonary vascularity is normal. No pulmonary edema or pulmonary congestion Mediastinum, josé manuel:No mediastinal widening. No hilar mass Pleura:No pleural fluid. No pleural-based mass or calcification Skeletal:Negative. IMPRESSION: 1. Bilateral pulmonary parenchymal infiltrates 2. No significant interval change since 10/23/2020 Interpreted and Authenticated by: Blaise Gomez 10/25/20
[2020-10-25] MEDS ORDERED: NEUTRA PHOS 1 PACKET PO PRN (07:45)
[2020-10-25 07:50] LABS: Basophils # (Auto) 0 K/mcL (0.00-0.20); Basophils % (Auto) 0 % (0.0-2.0); Eosinophils # (Auto) 0 K/mcL (0.00-0.70); Eosinophils % (Auto) 0 % (0.0-7.0); Hematocrit 35.3 % (36.0-48.0); Hemoglobin 11.6 g/dL (12.0-15.0); Lymphocytes # (Auto) 0.87 K/mcL (1.50-4.80); Lymphocytes % (Auto) 17.9 % (15.0-49.0); Mean Cell Volume 87.6 fL (80.0-100.0); Mean Corpuscular HGB Conc 32.9 g/dL (31.0-36.0); Mean Platelet Volume 10.7 fL (7.4-10.4); Monocytes # (Auto) 0.35 K/mcL (0.10-0.90); Monocytes % (Auto) 7.2 % (1.0-12.0); Neutrophils % (Auto) 74.9 % (38.0-78.0); Platelet Count 163 K/mcL (140-440); RBC 4.03 M/mcL (4.00-5.20); Red Cell Distribution Width 13.1 % (11.5-14.5); WBC 4.9 K/mcL (4.5-11.0)
[2020-10-25] MEDS: POTASSIUM CHLORIDE 20 MEQ TABLET PO SCH (08:22)
[2020-10-25] MEDS: metFORMIN 500 MG TAB.XL.24H PO SCH (08:22)
[2020-10-25] MEDS: OMEPRAZOLE 20 MG CAPSULE PO SCH (08:22)
[2020-10-25] MEDS: DOCUSATE SODIUM 100 MG CAPSULE PO SCH ×2 (08:26→22:05)
[2020-10-25] MEDS: INSULIN LISPRO 1 UNIT/0.01 ML UNIT SQ SCH ×4 (08:26→22:06)
[2020-10-25 08:27] LABS: ALT/SGPT 28 U/L (<40); AST/SGOT 30 U/L (<32); Albumin/Globulin Ratio 1.4 (1.0-2.3); Alkaline Phosphatase 52 U/L (39-117); Bilirubin,Direct < 0.2 mg/dL (<0.3); Bilirubin,Total 0.5 mg/dL (0.1-1.0); Blood Urea Nitrogen 10 mg/dL (6-20); Calcium 7.6 mg/dL (8.6-10.4); Carbon Dioxide 27 mmol/L (22-30); Chloride 101 mmol/L (96-108); Globulin 2.2 gm/dL (2.2-3.7); Glomerular Filtration Rate 107; Glucose 120 mg/dL (70-105); Lactate Dehydrogenase 209 U/L (135-225); Phosphorous 2.1 mg/dL (2.5-4.5); Triglycerides 53 mg/dL (<150); Uric Acid 5.8 mg/dL (2.5-8.0)
[2020-10-25] MEDS ORDERED: POTASSIUM PHOSPHATE 40 MEQ in DEXTROSE 5% IN WATER 500 ML IV ONE (11:00)
[2020-10-25] MEDS: REMDESIVIR 100 MG in 0.9 % SODIUM CHLORIDE 250 ML IV SCH (11:36)
[2020-10-25] MEDS: DEXAMETHASONE 4 MG TABLET PO SCH (11:39)
[2020-10-25] MEDS: MULTIVIT,THER IRON,CA,FA & MIN 1 TABLET PO SCH (11:40)
[2020-10-25] MEDS: FERROUS GLUCONATE 324 MG TABLET PO SCH (11:41)
[2020-10-25] MEDS: SERTRALINE 100 MG TABLET PO SCH ×2 (11:41→22:05)
--- NOTE | 2020-10-25 11:42 | Internal Med Progress Note ---
SUBJECTIVE Subjective Patient information: Note initiated : 10/25/20 at 11:40 am Service Date, if different from initiated Date: [] Patient: Lisa Cruz a 50 y/o F admitted on 10/24/20 for N/V/D x7 days. Chief Complaint: [] Interval history: History of present illness: Ms. Cruz is a 50 year old F morbidly obese with a BMI over 53 who presents the second time with symptoms of worsening nausea vomiting along with diarrhea weakness that has evolved over the last 8 to 9 days. Patient works at ICU as an contract accountant. She denies any precipitating events but endorses to gradually progressive loss of appetite along with nausea and not feeling well unable to take anything by mouth. Symptoms progressed to the point she could barely function. She presented to the ER initial work-up was unremarkable during the prior visit and was discha rged home however with worsening symptoms he presents again. During today's work-up she was found to be Covid positive along with bilateral chest infiltrates. Abdominal CT was unremarkable for acute abdominal process. Patient was started on dexamethasone/remdesivir and subsequently hospitalist se mcgraw was consulted for Covid pneumonia. At the time of evaluation patient is alert and oriented. She was able to answer most the questions. She denies recent exposure to sick contacts. She lives alone. She denies loss of taste or smell but has been generally feeling poorly. She denies joint aches/skin rash/headache, photophobia or vision changes. 10/24-room. Improve nauseousness previous night and now tolerating ice chips/water. Bilateral patchy infiltrates on chest imaging. Continue r emdesivir/dexamethasone. Restart home medications. Leukopenic with white count 2.6/low platelets secondary to Covid syndrome. Potassium improved from 2.9-3.4 on replacement. Phosphorus 2.1 on replacement. LFTs stable. 10/25-patient doing well. Afebrile. Currently on room air. Bilateral paren chymal infiltrates consistent with Covid pneumonia. On remdesivir day 3/5, feels a lot better. Continue dexamethasone. White count 4.9. Potassium improved to 3, continue replacement. Phosphorus 2.1 on replacement. Constitutional Vitals: Vital Signs Temp Pulse Resp BP Pulse Ox 97.1 F 82 20 121/61 96 10/25/20 08:00 10/25/20 08:00 10/25/20 08:00 10/25/20 08:00 10/25/20 08:00 Period Temp Pulse Resp BP Sys/Cruz Pulse Ox Last 24 Hr 96.8 F-99 F 69-89 18-20 105-140/60-72 92-96 Intake and Output 10/24/20 10/25/20 10/25/20 21:59 05:59 13:59 Intake Total 1450 2148 Output Total 50 150 Balance 1400 1997 Weight 158.984 kg Alert oriented Nonlabored breathing No anxiety Nondistended abdomen Intake & Output: Intake & Output 10/24/20 10/25/20 10/25/20 21:59 05:59 13:59 Intake Total 1450 2148 Output Total 50 150 Balance 1400 1997 Weight 158.984 kg Intake: IV 1250 1848 Sodium Chloride 0.9% 1,000 ml @ 1000 1848 150 mls/hr IV .Q6H40M [facility] Rx#: [id number] V[place]lury 100 mg In Sodium 250 Chloride 0.9% 250 ml @ 500 mls/ hr IV Q24H [facility] Rx#:[id number] Oral 200 300 Output: Void Amount 50 150 Other: Meal egg salad w/ crackers Percent of Meal Consumed 100% Feeding Ability Independent Urine Appearance Clear Clear Urine Color Bright Yellow Pale Urine Odor Normal Stool Size Moderate Stool Color Brown Stool Consistency Soft # Voids 1 1 # Bowel Movements 1 OBJ DATA Labs CBC & Chem 7: 10/25/20 05:48 10/25/20 05:48 Labs: Abnormal Lab Results 10/25/20 10/25/20 10/24/20 05:48 05:48 05:28 WBC RBC Hgb 11.6 L Hct 35.3 L POC Hct Plt Count MPV 10.7 H Lymph # (Auto) 0.87 L POC Potassium Potassium 3.0 L Glucose 120 H 138 H Calcium 7.6 L 7.4 L POC WB Ioniz Calcium Phosphorus 2.1 L 2.1 L AST 33 H Total Protein 5.2 L 5.6 L Albumin 3.0 L SARS-CoV-2 (PCR) 10/24/20 10/23/20 10/23/20 05:28 20:19 16:04 WBC 2.6 L RBC 3.91 L Hgb 11.2 L Hct 34.1 L POC Hct 32 L Plt Count 130 L MPV Lymph # (Auto) 0.45 L POC Potassium 2.9 L* Potassium 3.1 L Glucose 106 H Calcium 8.1 L POC WB Ioniz Calcium 0.97 L Phosphorus AST 34 H Total Protein Albumin SARS-CoV-2 (PCR) Positive A 10/23/20 16:04 WBC 3.0 L RBC Hgb Hct POC Hct Plt Count 132 L MPV Lymph # (Auto) 0.67 L POC Potassium Potassium Glucose Calcium POC WB Ioniz Calcium Phosphorus AST Total Protein Albumin SARS-CoV-2 (PCR) Meds: Medications Acetaminophen (Tylenol) 650 mg PO Q6HP PRN; Protocol PRN Reason: Per Pain Protocol/Fever > 101 Atorvastatin Calcium (Lipitor) 20 mg PO HS [facility] Last Admin: 10/24/20 22:32 Dose: 20 mg Documented by: Bisacodyl (Dulcolax) 10 mg IA Q2-3DAYS PRN PRN Reason: Constipation Dexamethasone (Decadron) 6 mg PO DAILY [facility] Last Admin: 10/24/20 10:28 Dose: 6 mg Documented by: Dextrose (Dextrose 50%) 0 ml IV UD PRN PRN Reason: Hypoglycemia Diagnostic Test (Pha) (Accu-Chek) 1 each FS ACHS [facility] Last Admin: 10/25/20 08:24 Dose: 1 each Documented by: Docusate Sodium (Colace) 100 mg PO BID [facility] Last Admin: 10/25/20 08:26 Dose: Not Given Documented by: Enoxaparin Sodium (Lovenox) 40 mg SQ BID [facility] Last Admin: 10/24/20 22:32 Dose: 40 mg Documented by: Ferrous Gluconate (Fergon) 324 mg PO QDAY [facility] Last Admin: 10/24/20 10:36 Dose: 324 mg Documented by: Glucose (Insta-Glucose) 15 gm PO PRN PRN PRN Reason: Hypoglycemia Hydralazine HCl (Apresoline) 10 mg IV Q4-6HP PRN PRN Reason: Hypertension Hydrochlorothiazide (Oretic) 25 mg PO DAILY [facility] Last Admin: 10/24/20 10:33 Dose: 25 mg Documented by: Sodium Chloride (Sodium Chloride 0.9%) 1,000 mls @ 20 mls/hr IV .Q24H [facility] Last Admin: 10/24/20 22:44 Dose: Not Given Documented by: Sodium Chloride (Sodium Chloride 0.9%) 1,000 mls @ 150 mls/hr IV .Q6H40M [facility] Last Admin: 10/25/20 05:39 Dose: 150 mls/hr Documented by: Potassium Chloride 40 meq/ (Dextrose) 520 mls @ 130 mls/hr IV UD PRN PRN Reason: K+ = or < 3.5 Acetaminophen (Ofirmev) 650 mg in 65 mls @ 130 mls/hr IV Q6HP PRN; Protocol PRN Reason: Per Pain Protocol/Fever > 101 Magnesium Sulfate (Magnesium Sulfate) 2 gm in 50 mls @ 50 mls/hr IV UD PRN PRN Reason: MG = or < 1.7 Last Infusion: 10/24/20 11:55 Dose: Infused Documented by: REMDESIVIR 100 mg/ Sodium (Chloride) 250 mls @ 500 mls/hr IV Q24H [facility] Stop: 10/27/20 15:29 Last Admin: 10/25/20 11:36 Dose: 500 mls/hr Documented by: Potassium Phosphate 40 meq/ (Dextrose) 509.0909 mls @ 127.273 mls/hr IV ONCE ONE Stop: 10/25/20 14:59 Insulin Human Lispro (Humalog) 0 unit SQ ACHS [facility]; Protocol Last Admin: 10/25/20 08:26 Dose: Not Given Documented by: Iron Carb/Multivit/Air Compressor Mechanic/Folic Acid (Multivitamin W/Minerals) 1 tab PO DAILY [facility] Last Admin: 10/24/20 10:38 Dose: 1 tab Documented by: Lisinopril (Zestril) 20 mg PO DAILY [facility] Last Admin: 10/24/20 10:33 Dose: 20 mg Documented by: Melatonin (Melatonin 3mg Tablet) 3 mg PO HSP PRN PRN Reason: Insomnia Last Admin: 10/24/20 01:29 Dose: 3 mg Documented by: Metformin HCl (Glucophage) 500 mg PO [facility] Last Admin: 10/25/20 08:22 Dose: 500 mg Documented by: Metoprolol Succinate (Toprol Xl) 50 mg PO DAILY [facility] Last Admin: 10/24/20 10:33 Dose: 50 mg Documented by: Omeprazole (Prilosec) 20 mg PO ACB [facility] Last Admin: 10/25/20 08:22 Dose: 20 mg Documented by: Ondansetron HCl (Zofran) 4 mg IV Q4HP PRN; Protocol PRN Reason: Nausea And Vomiting Last Admin: 10/24/20 10:21 Dose: 4 mg Documented by: Ondansetron HCl (Zofran Odt) 4 mg SL Q4-6HP PRN; Protocol PRN Reason: Nausea And Vomiting Polyethylene Glycol (Miralax) 17 gm PO DAILYP PRN PRN Reason: Constipation Potassium Chloride (Klor-Con) 40 meq PO DAILYP PRN PRN Reason: K+ < 3.5 Last Admin: 10/24/20 10:25 Dose: 40 meq Documented by: Potassium Ch[facility]ide (Kdur) [facility] Last Admin: 10/25/20 08:22 Dose: 20 meq Documented by: Pot[facility]ur) [facility] Admin: 10/24/20 16:55 Dose: 10 meq Documented by: Potassium/Phosphorus/Sodium (Neutra Phos) 2 packet PO DAILYP PRN PRN Reason: PHOS <2.5 Promethazine HCl (Phenergan) 12.5 mg IV Q4-6HP PRN PRN Reason: Nausea And Vomiting Senna/Docusate Sodium (Senna Plus Tablet) 1 tab PO HS [facility] Last Admin: 10/24/20 22:35 Dose: Not Given Documented by: Sertraline HCl (Zoloft) 100 mg PO BID [facility] Last Admin: 10/24/20 22:32 Dose: 100 mg Documented by: Sodium Chloride (Saline Flush) 10 ml IV Q8 [facility] Last Admin: 10/25/20 05:39 Dose: Not Given Documented by: Tolterodine Tartrate (Detrol La) 4 mg PO QDAY [facility] Last Admin: 10/24/20 10:35 Dose: 4 mg Documented by: Trazodone HCl (Desyrel) 100 mg PO QHS [facility] Last Admin: 10/24/20 22:32 Dose: 100 mg Documented by: A/P Narrative A/P Narrative: * COVID-19 pneumonia with infiltrate worsening on chest imaging/bilateral - Continue remdesivir/dexamethasone/ supportive management/contact precautions. * Nausea vomiting clinically improved. Now able to tolerate oral diet and supportive management. Secondary to acute viral syndrome * Hypokalemia continue oral replacement * Low phosphorus continue oral/IV replacement * History of anxiety disorder continue sertraline/trazodone * DM type II continue CC diet/sliding scale insulin * History of hypertension continue benazepril/hydrochlorothiazide/metoprolol * GERD continue PPI * Full code * prophylaxis twice daily Lovenox Plan * Remdesivir/dexamethasone/thrombosis prophylaxis * Potassium and phosphorus replacement as indicated * Pre-existing medical condition management home meds * Directed therapies/nutrition support/early mobilization * Crystalloids supportive management * Pre-existing medical Condition management home medication Time Spent With Patient Time: Total time spent is greater than 50% in coordination of care (as documented) at patient's floor/unit and/or counseling patient: QUALITY Stroke Symptom Onset Unknown: No VTE Deep Vein Thrombosis/Pulmonary Embolism Present on Admission: No
[2020-10-25] MEDS: TOLTERODINE 2 MG CAP.XL.24H PO SCH (11:47)
[2020-10-25] MEDS: ENOXAPARIN 40 MG/0.4 ML SYRINGE SQ SCH ×2 (11:48→22:04)
[2020-10-25] MEDS: HYDROCHLOROTHIAZIDE 25 MG TABLET PO SCH (11:52)
[2020-10-25] MEDS: METOPROLOL SUCCINATE 50 MG TAB.XL.24H PO SCH (11:52)
[2020-10-25] MEDS: LISINOPRIL 20 MG TABLET PO SCH (11:52)
[2020-10-25] MEDS: POTASSIUM CHLORIDE 10 MEQ TABLET PO SCH (18:03)
[2020-10-25] MEDS: MELATONIN 3 MG TABLET PO PRN (22:05)
[2020-10-25] MEDS: ATORVASTATIN 20 MG TABLET PO SCH (22:05)
[2020-10-25] MEDS: traZODone HCL 50 MG TABLET PO SCH (22:05)
[2020-10-25] MEDS: SENNOSIDES/DOCUSATE SODIUM 1 TAB TABLET PO SCH (22:06)
[2020-10-26] MEDS: 0.9 % SODIUM CHLORIDE 10 ML SYRINGE IV SCH ×3 (04:57→20:04)
[2020-10-26 07:24] LABS: Basophils # (Auto) 0.01 K/mcL (0.00-0.20); Basophils % (Auto) 0.2 % (0.0-2.0); Eosinophils # (Auto) 0 K/mcL (0.00-0.70); Eosinophils % (Auto) 0 % (0.0-7.0); Hematocrit 34.2 % (36.0-48.0); Hemoglobin 11.4 g/dL (12.0-15.0); Lymphocytes # (Auto) 1.17 K/mcL (1.50-4.80); Lymphocytes % (Auto) 21.4 % (15.0-49.0); Mean Cell Volume 86.6 fL (80.0-100.0); Mean Corpuscular HGB Conc 33.3 g/dL (31.0-36.0); Mean Platelet Volume 10.7 fL (7.4-10.4); Monocytes # (Auto) 0.56 K/mcL (0.10-0.90); Monocytes % (Auto) 10.2 % (1.0-12.0); Neutrophils % (Auto) 68.2 % (38.0-78.0); Platelet Count 178 K/mcL (140-440); RBC 3.95 M/mcL (4.00-5.20); Red Cell Distribution Width 13.2 % (11.5-14.5); WBC 5.5 K/mcL (4.5-11.0)
[2020-10-26] MEDS: DOCUSATE SODIUM 100 MG CAPSULE PO SCH ×2 (07:44→20:02)
[2020-10-26 08:16] LABS: ALT/SGPT 23 U/L (<40); AST/SGOT 21 U/L (<32); Albumin/Globulin Ratio 1.4 (1.0-2.3); Alkaline Phosphatase 54 U/L (39-117); Bilirubin,Direct < 0.2 mg/dL (<0.3); Bilirubin,Total 0.4 mg/dL (0.1-1.0); Blood Urea Nitrogen 15 mg/dL (6-20); Calcium 7.8 mg/dL (8.6-10.4); Carbon Dioxide 28 mmol/L (22-30); Chloride 103 mmol/L (96-108); Globulin 2.2 gm/dL (2.2-3.7); Glomerular Filtration Rate 102; Glucose 107 mg/dL (70-105); Lactate Dehydrogenase 179 U/L (135-225); Triglycerides 59 mg/dL (<150)
[2020-10-26] MEDS: REMDESIVIR 100 MG in 0.9 % SODIUM CHLORIDE 250 ML IV SCH (09:00)
[2020-10-26] MEDS ORDERED: POTASSIUM CHLORIDE 20 MEQ TABLET PO ONE (10:00)
[2020-10-26] MEDS: INSULIN LISPRO 1 UNIT/0.01 ML UNIT SQ SCH ×4 (10:05→20:03)
[2020-10-26] MEDS: POTASSIUM CHLORIDE 20 MEQ PACKET PO PRN (10:06)
[2020-10-26] MEDS: TOLTERODINE 2 MG CAP.XL.24H PO SCH (10:09)
[2020-10-26] MEDS: DEXAMETHASONE 4 MG TABLET PO SCH (10:09)
[2020-10-26] MEDS: POTASSIUM CHLORIDE 20 MEQ TABLET PO SCH (10:10)
[2020-10-26] MEDS: SERTRALINE 100 MG TABLET PO SCH ×2 (10:13→20:04)
[2020-10-26] MEDS: OMEPRAZOLE 20 MG CAPSULE PO SCH (10:13)
[2020-10-26] MEDS: ENOXAPARIN 40 MG/0.4 ML SYRINGE SQ SCH ×2 (10:14→20:04)
[2020-10-26] MEDS: metFORMIN 500 MG TAB.XL.24H PO SCH (10:14)
[2020-10-26] MEDS: FERROUS GLUCONATE 324 MG TABLET PO SCH (10:14)
[2020-10-26] MEDS: MULTIVIT,THER IRON,CA,FA & MIN 1 TABLET PO SCH (10:14)
[2020-10-26] MEDS: LISINOPRIL 20 MG TABLET PO SCH (10:14)
[2020-10-26] MEDS: HYDROCHLOROTHIAZIDE 25 MG TABLET PO SCH (10:14)
[2020-10-26] MEDS: METOPROLOL SUCCINATE 50 MG TAB.XL.24H PO SCH (10:14)
--- NOTE | 2020-10-26 10:39 | Internal Med Progress Note ---
SUBJECTIVE Subjective Patient information: Note initiated : 10/26/20 at 10:36 am Service Date, if different from initiated Date: [] Patient: Lisa Cruz a 50 y/o F admitted on 10/24/20 for N/V/D x7 days. Chief Complaint: Interval history: History of present illness: Ms. Cruz is a 50 year old F morbidly obese with a BMI over 53 who presents the second time with symptoms of worsening nausea vomiting along with diarrhea weakness that has evolved over the last 8 to 9 days. Patient works at ICU as an reconciliation accountant. She denies any precipitating events but endorses to gradually progressive loss of appetite along with nausea and not feeling well unable to take anything by mouth. Symptoms progressed to the point she could barely function. She presented to the ER initial work-up was unremarkable during the prior visit and was dischar ged home however with worsening symptoms he presents again. During today's work-up she was found to be Covid positive along with bilateral chest infiltrates. Abdominal CT was unremarkable for acute abdominal process. Patient was started on dexamethasone/remdesivir and subsequently hospitalist simone gates was consulted for Covid pneumonia. At the time of evaluation patient is alert and oriented. She was able to answer most the questions. She denies recent exposure to sick contacts. She lives alone. She denies loss of taste or smell but has been generally feeling poorly. She denies joint aches/skin rash/headache, photophobia or vision changes. 10/24-room. Improve nauseousness previous night and now tolerating ice chips/water. Bilateral patchy infiltrates on chest imaging. Continue re mdesivir/dexamethasone. Restart home medications. Leukopenic with white count 2.6/low platelets secondary to Covid syndrome. Potassium improved from 2.9-3.4 on replacement. Phosphorus 2.1 on replacement. LFTs stable. 10/25-patient doing well. Afebrile. Currently on room air. Bilateral parenc hymal infiltrates consistent with Covid pneumonia. On remdesivir day 3/5, feels a lot better. Continue dexamethasone. White count 4.9. Potassium improved to 3, continue replacement. Phosphorus 2.1 on replacement. 10/26-patient clinically improving. Currently on room air. Continue remdesivir day 4/5. Anticipate discharge in 24 hours pending completion of remdesivir. Denies fever, body ache, nausea. Tolerating diet. Able to ambulate. Interval imaging in 24 hours Constitutional Vitals: Vital Signs Temp Pulse Resp BP Pulse Ox 96.6 F L 72 16 113/54 95 10/26/20 08:00 10/26/20 08:00 10/26/20 08:00 10/26/20 08:00 10/26/20 08:00 Period Temp Pulse Resp BP Sys/Cruz Pulse Ox Last 24 Hr 96.6 F-98.9 F 67-76 - 110-133/54-68 93-97 Intake and Output 10/25/20 10/26/20 10/26/20 21:59 05:59 13:59 Intake Total 680 Output Total 600 Balance -600 680 Weight 159.12 kg Alert oriented No anxiety Nonlabored breathing Nondistended abdomen Intake & Output: Intake & Output 10/25/20 10/26/20 10/26/20 21:59 05:59 13:59 Intake Total 680 Output Total 600 Balance -600 680 Weight 159.12 kg Intake: Oral 680 Output: Void Amount 600 Other: Meal Lunch Percent of Meal Consumed 100% Feeding Ability Independent Urine Appearance Clear Urine Color Bright Yellow Urine Odor Normal Stool Size Small Stool Color Brown Stool Consistency Loose # Voids 1 1 # Bowel Movements 1 OBJ DATA Labs CBC & Chem 7: 10/26/20 06:03 10/26/20 06:03 Labs: Abnormal Lab Results 10/26/20 10/26/20 10/26/20 06:03 06:03 06:03 WBC RBC 3.95 L Hgb 11.4 L Hct 34.2 L POC Hct Plt Count MPV 10.7 H Lymph # (Auto) 1.17 L D-Dimer 0.56 H POC Potassium Potassium Glucose 107 H Calcium 7.8 L POC WB Ioniz Calcium Phosphorus AST Total Protein 5.2 L Albumin 3.0 L SARS-CoV-2 (PCR) 10/25/20 10/25/20 10/24/20 05:48 05:48 05:28 WBC RBC Hgb 11.6 L Hct 35.3 L POC Hct Plt Count MPV 10.7 H Lymph # (Auto) 0.87 L D-Dimer POC Potassium Potassium 3.0 L Glucose 120 H 138 H Calcium 7.6 L 7.4 L POC WB Ioniz Calcium Phosphorus 2.1 L 2.1 L AST 33 H Total Protein 5.2 L 5.6 L Albumin 3.0 L SARS-CoV-2 (PCR) 10/24/20 10/23/20 10/23/20 05:28 20:19 16:04 WBC 2.6 L RBC 3.91 L Hgb 11.2 L Hct 34.1 L POC Hct 32 L Plt Count 130 L MPV Lymph # (Auto) 0.45 L D-Dimer POC Potassium 2.9 L* Potassium 3.1 L Glucose 106 H Calcium 8.1 L POC WB Ioniz Calcium 0.97 L Phosphorus AST 34 H Total Protein Albumin SARS-CoV-2 (PCR) Positive A 10/23/20 16:04 WBC 3.0 L RBC Hgb Hct POC Hct Plt Count 132 L MPV Lymph # (Auto) 0.67 L D-Dimer POC Potassium Potassium Glucose Calcium POC WB Ioniz Calcium Phosphorus AST Total Protein Albumin SARS-CoV-2 (PCR) Meds: Medications Acetaminophen (Tylenol) 650 mg PO Q6HP PRN; Protocol PRN Reason: Per Pain Protocol/Fever > 101 Atorvastatin Calcium (Lipitor) 20 mg PO HS [facility] Last Admin: 10/25/20 22:05 Dose: 20 mg Documented by: Bisacodyl (Dulcolax) 10 mg OH Q2-3DAYS PRN PRN Reason: Constipation Dexamethasone (Decadron) 6 mg PO DAILY [facility] Last Admin: 10/26/20 10:09 Dose: 6 mg Documented by: Dextrose (Dextrose 50%) 0 ml IV UD PRN PRN Reason: Hypoglycemia Diagnostic Test (Pha) (Accu-Chek) 1 each FS ACHS [facility] Last Admin: 10/26/20 10:06 Dose: 1 each Documented by: Docusate Sodium (Colace) 100 mg PO BID [facility] Last Admin: 10/26/20 07:44 Dose: Not Given Documented by: Enoxaparin Sodium (Lovenox) 40 mg SQ BID [facility] Last Admin: 10/26/20 10:14 Dose: 40 mg Documented by: Ferrous Gluconate (Fergon) 324 mg PO QDAY [facility] Last Admin: 10/26/20 10:14 Dose: 324 mg Documented by: Glucose (Insta-Glucose) 15 gm PO PRN PRN PRN Reason: Hypoglycemia Hydralazine HCl (Apresoline) 10 mg IV Q4-6HP PRN PRN Reason: Hypertension Hydrochlorothiazide (Oretic) 25 mg PO DAILY [facility] Last Admin: 10/26/20 10:14 Dose: 25 mg Documented by: Sodium Chloride (Sodium Chloride 0.9%) 1,000 mls @ 20 mls/hr IV .Q24H [facility] Last Admin: 10/25/20 22:07 Dose: Not Given Documented by: Potassium Chloride 40 meq/ (Dextrose) 520 mls @ 130 mls/hr IV UD PRN PRN Reason: K+ = or < 3.5 Acetaminophen (Ofirmev) 650 mg in 65 mls @ 130 mls/hr IV Q6HP PRN; Protocol PRN Reason: Per Pain Protocol/Fever > 101 Magnesium Sulfate (Magnesium Sulfate) 2 gm in 50 mls @ 50 mls/hr IV UD PRN PRN Reason: MG = or < 1.7 Last Infusion: 10/24/20 11:55 Dose: Infused Documented by: REMDESIVIR 100 mg/ Sodium (Chloride) 250 mls @ 500 mls/hr IV Q24H [facility] Stop: 10/27/20 15:29 Last Admin: 10/26/20 09:00 Dose: 500 mls/hr Documented by: Insulin Human Lispro (Humalog) 0 unit SQ ACHS [facility]; Protocol Last Admin: 10/26/20 10:05 Dose: Not Given Documented by: Iron Carb/Multivit/[place]/Folic Acid (Multivitamin W/Minerals) 1 tab PO DAILY [facility] Last Admin: 10/26/20 10:14 Dose: 1 tab Documented by: Lisinopril (Zestril) 20 mg PO DAILY [facility] Last Admin: 10/26/20 10:14 Dose: 20 mg Documented by: Melatonin (Melatonin 3mg Tablet) 3 mg PO HSP PRN PRN Reason: Insomnia Last Admin: 10/25/20 22:05 Dose: 3 mg Documented by: Metformin HCl (Glucophage) 500 mg PO [facility] Last Admin: 10/26/20 10:14 Dose: 500 mg Documented by: Metoprolol Succinate (Toprol Xl) 50 mg PO DAILY [facility] Last Admin: 10/26/20 10:14 Dose: 50 mg Documented by: Omeprazole (Prilosec) 20 mg PO ACB [facility] Last Admin: 10/26/20 10:13 Dose: 20 mg Documented by: Ondansetron HCl (Zofran) 4 mg IV Q4HP PRN; Protocol PRN Reason: Nausea And Vomiting Last Admin: 10/24/20 10:21 Dose: 4 mg Documented by: Ondansetron HCl (Zofran Odt) 4 mg SL Q4-6HP PRN; Protocol PRN Reason: Nausea And Vomiting Polyethylene Glycol (Miralax) 17 gm PO DAILYP PRN PRN Reason: Constipation Potassium Chloride (Klor-Con) 40 meq PO DAILYP PRN PRN Reason: K+ < 3.5 Last Admin: 10/26/20 10:06 Dose: 40 meq Documented by: [facility]assium [facility] ([facility]ur) [facility] Last Admin: 10/26/20 10:10 Dose: 20 meq Documented by: Pot[facility] ([facility]dur) [facility] Last Admin: 10/25/20 18:03 Dose: 10 meq Documented by: Potassium/Phosphorus/Sodium (Neutra Phos) 2 packet PO DAILYP PRN PRN Reason: PHOS <2.5 Last Admin: 10/25/20 15:55 Dose: 2 packet Documented by: Promethazine HCl (Phenergan) 12.5 mg IV Q4-6HP PRN PRN Reason: Nausea And Vomiting Senna/Docusate Sodium (Senna Plus Tablet) 1 tab PO [facility] Last Admin: 10/25/20 22:06 Dose: Not Given Documented by: Sertraline HCl (Zoloft) 100 mg PO BID [facility] Last Admin: 10/26/20 10:13 Dose: 100 mg Documented by: Sodium Chloride (Saline Flush) 10 ml IV Q8 [facility] Last Admin: 10/26/20 04:57 Dose: Not Given Documented by: Tolterodine Tartrate (Detrol La) 4 mg PO QDAY [facility] Last Admin: 10/26/20 10:09 Dose: 4 mg Documented by: Trazodone HCl (Desyrel) 100 mg PO QHS [facility] Last Admin: 10/25/20 22:05 Dose: 100 mg Documented by: A/P Narrative A/P Narrative: * COVID-19 pneumonia bilateral with interval worsening. On day 4 remdesivir/dexamethasone, maintain contact cautions * Nausea vomiting clinically improved. Now able to tolerate oral diet and supportive management. Secondary to acute viral syndrome * Low potassium and phosphorus on IV and oral replacement * History of anxiety disorder stable on home dose sertraline/trazodone * DM type II continue CC diet/sliding scale insulin * History of hypertension continue benazepril/hydrochlorothiazide/metoprolol * GERD continue PPI * Full code * prophylaxis twice daily Lovenox Plan * Day 4 remdesivir/dexamethasone/thrombosis prophylaxis * Potassium and phosphorus replacement as indicated * Interval chest imaging * Pre-existing medical condition management home meds * Continue directed therapies/nutrition support/early mobilization * Discharge planning likely 24 hours Time Spent With Patient Time: Total time spent is greater than 50% in coordination of care (as documented) at patient's floor/unit and/or counseling patient: QUALITY Stroke Symptom Onset Unknown: No VTE Deep Vein Thrombosis/Pulmonary Embolism Present on Admission: No
[2020-10-26] MEDS: POTASSIUM CHLORIDE 10 MEQ TABLET PO SCH (17:48)
[2020-10-26] MEDS: SENNOSIDES/DOCUSATE SODIUM 1 TAB TABLET PO SCH (20:03)
[2020-10-26] MEDS: traZODone HCL 50 MG TABLET PO SCH (20:03)
[2020-10-26] MEDS: ATORVASTATIN 20 MG TABLET PO SCH (20:03)
[2020-10-26] MEDS: MELATONIN 3 MG TABLET PO PRN (20:04)
[2020-10-26] MEDS: 0.9 % SODIUM CHLORIDE 1,000 ML IV SCH (22:50)
[2020-10-27] MEDS: 0.9 % SODIUM CHLORIDE 10 ML SYRINGE IV SCH (04:48)
--- NOTE | 2020-10-27 06:41 | XRay Report ---
INDICATION: Interval Change TECHNIQUE: AP portable upright chest x-ray COMPARISON: Previous chest x-rays dated 10/25/2020, 10/23/2020, 05/02/2018 FINDINGS: Lungs:Bilateral patchy parenchymal infiltrates consistent with pneumonia. Covid pneumonia is possible. Overall appearance is stable or slightly improved. No interval worsening. Heart, vascular:Heart size is borderline enlarged considering AP positioning. No evidence for congestive heart failure Mediastinum, josé manuel:No mediastinal widening. No hilar mass Pleura:No pleural fluid. No pleural-based mass or calcification Skeletal:Negative. IMPRESSION: Pulmonary parenchymal infiltrates may be improved or stable. No interval worsening Interpreted and Authenticated by: Blaise Gomez 10/27/20
[2020-10-27 06:54] LABS: Basophils # (Auto) 0.03 K/mcL (0.00-0.20); Basophils % (Auto) 0.4 % (0.0-2.0); Eosinophils # (Auto) 0 K/mcL (0.00-0.70); Eosinophils % (Auto) 0 % (0.0-7.0); Hematocrit 36.6 % (36.0-48.0); Hemoglobin 11.7 g/dL (12.0-15.0); Lymphocytes # (Auto) 1.42 K/mcL (1.50-4.80); Lymphocytes % (Auto) 20.1 % (15.0-49.0); Mean Cell Volume 88.2 fL (80.0-100.0); Mean Platelet Volume 10.8 fL (7.4-10.4); Monocytes # (Auto) 0.66 K/mcL (0.10-0.90); Monocytes % (Auto) 9.3 % (1.0-12.0); Neutrophils % (Auto) 70.2 % (38.0-78.0); Platelet Count 193 K/mcL (140-440); RBC 4.15 M/mcL (4.00-5.20); Red Cell Distribution Width 13.1 % (11.5-14.5); WBC 7.1 K/mcL (4.5-11.0)
[2020-10-27] MEDS: POTASSIUM CHLORIDE 20 MEQ TABLET PO SCH (07:41)
[2020-10-27] MEDS: metFORMIN 500 MG TAB.XL.24H PO SCH (07:41)
[2020-10-27] MEDS: OMEPRAZOLE 20 MG CAPSULE PO SCH (07:41)
[2020-10-27] MEDS: INSULIN LISPRO 1 UNIT/0.01 ML UNIT SQ SCH ×2 (07:42→12:14)
[2020-10-27 07:55] LABS: ALT/SGPT 22 U/L (<40); AST/SGOT 18 U/L (<32); Albumin 3.2 gm/dL (3.2-5.2); Albumin/Globulin Ratio 1.5 (1.0-2.3); Alkaline Phosphatase 64 U/L (39-117); Bilirubin,Direct < 0.2 mg/dL (<0.3); Bilirubin,Total 0.5 mg/dL (0.1-1.0); Blood Urea Nitrogen 20 mg/dL (6-20); Calcium 8.3 mg/dL (8.6-10.4); Carbon Dioxide 28 mmol/L (22-30); Chloride 104 mmol/L (96-108); Globulin 2.1 gm/dL (2.2-3.7); Glomerular Filtration Rate 102; Glucose 106 mg/dL (70-105); Lactate Dehydrogenase 190 U/L (135-225); Phosphorous 3.1 mg/dL (2.5-4.5); Triglycerides 66 mg/dL (<150); Uric Acid 6.4 mg/dL (2.5-8.0)
[2020-10-27] MEDS: MULTIVIT,THER IRON,CA,FA & MIN 1 TABLET PO SCH (08:19)
[2020-10-27] MEDS: ENOXAPARIN 40 MG/0.4 ML SYRINGE SQ SCH (08:19)
[2020-10-27] MEDS: HYDROCHLOROTHIAZIDE 25 MG TABLET PO SCH (08:19)
[2020-10-27] MEDS: METOPROLOL SUCCINATE 50 MG TAB.XL.24H PO SCH (08:19)
[2020-10-27] MEDS: FERROUS GLUCONATE 324 MG TABLET PO SCH (08:20)
[2020-10-27] MEDS: DOCUSATE SODIUM 100 MG CAPSULE PO SCH (08:20)
[2020-10-27] MEDS: DEXAMETHASONE 4 MG TABLET PO SCH (08:20)
[2020-10-27] MEDS: SERTRALINE 100 MG TABLET PO SCH (08:20)
[2020-10-27] MEDS: LISINOPRIL 20 MG TABLET PO SCH (08:20)
[2020-10-27] MEDS: TOLTERODINE 2 MG CAP.XL.24H PO SCH (09:53)
[2020-10-27] MEDS: REMDESIVIR 100 MG in 0.9 % SODIUM CHLORIDE 250 ML IV SCH (09:54)
--- NOTE | 2020-10-27 10:23 | Discharge Summary ---
Discharge Provider Provider Patient information: Note initiated : 10/27/20 at 10:20 am Service Date, if different from initiated Date: [] Patient: Lisa Cruz a 50 y/o F admitted on 10/24/20 for N/V/D x7 days. Discharge diagnosis * COVID-19 pneumonia bilateral on imaging, completed 5 days remdesivir. Continue additional 5 days dexamethasone. * Nausea vomiting clinically improved. Now able to tolerate oral diet and supportive management. Secondary to acute viral syndrome * Low potassium and phosphorus resolved with replacement * History of anxiety disorder stable on home dose sertraline/trazodone * DM type II managed on CC diet/sliding scale insulin * History of hypertension managed on home dose benazepril/hydrochlorothiazide/metoprolol * GERD continue PPI Brief hospital course Interval history: History of present illness: Ms. Cruz is a 50 year old F morbidly obese with a BMI over 53 who presents the second time with symptoms of worsening nausea vomiting along with diarrhea weakness that has evolved over the last 8 to 9 days. Patient works at ICU as an senior staff accountant. She denies any precipitating events but endorses to gradually progressive loss of appetite along with nausea and not feeling well unable to take anything by mouth. Symptoms progressed to the point she could barely function. She presented to the ER initial work-up was unremarkable during the prior visit and was discharged home however with worsening symptoms he presents again. During today's work-up she was found to be Covid positive along with bilateral chest infiltrates. Abdominal CT was unremarkable for acute abdominal process. Patient was started on dexamethasone/remdesivir and subsequently hospitalist service was consulted for Covid pneumonia. At the time of evaluation patient is alert and oriented. She was able to answer most the questions. She denies recent exposure to sick contacts. She lives alone. She denies loss of taste or smell but has been generally feeling poorly. She denies joint aches/skin rash/headache, photophobia or vision changes. 10/24-room. Improve nauseousness previous night and now tolerating ice chips/water. Bilateral patchy infiltrates on chest imaging. Continue remdesivir/dexamethasone. Restart home medications. Leukopenic with white count 2.6/low platelets secondary to Covid syndrome. Potassium improved from 2.9-3.4 on replacement. Phosphorus 2.1 on replacement. LFTs stable. 10/25-patient doing well. Afebrile. Currently on room air. Bilateral parenchymal infiltrates consistent with Covid pneumonia. On remdesivir day 3/5, feels a lot better. Continue dexamethasone. White count 4.9. Potassium improved to 3, continue replacement. Phosphorus 2.1 on replacement. 10/26-patient clinically improving. Currently on room air. Continue remdesivir day 4/5. Anticipate discharge in 24 hours pending completion of remdesivir. Denies fever, body ache, nausea. Tolerating diet. Able to ambulate. Interval imaging in 24 hours 10/27-patient clinically improved. Saturating on room air. No overnight fever chills. Viral syndrome much improved with solution of myalgia/headaches. Able to ambulate and tolerate diet. Discharging after completing 5 days remdesivir/dexamethasone. Continue additional 5 days dexamethasone. Maintain contact precautions on discharge. Follow-up primary care physician in 10 days. Return to ER if worsening fever chills shortness of breath Date of admission: 10/24/20 09:56 Discharge date: 10/27/20 Primary care physician: PASCALE Schumacher Consults: 10/23/20 Consult to Physician [CONS] Stat Comment: Consulting Provider: Zain Pastor Reason For Exam: Physician to Consult Discharge Meds Discharge Medications Home Medications ferrous gluconate 324 mg (37.5 mg iron) tablet 324 mg PO QDAY tab 08/21/19 [History Confirmed 10/23/20 Last Taken 10/22/20 21:00] tolterodine 4 mg capsule,extended release 24 hr 4 mg PO QDAY #30 cap 02/26/20 [Rx Confirmed 10/24/20 Last Taken 10/22/20 09:00] potassium chloride 10 mEq tablet,extended release 20 meq PO .COMPLEX #90 tab 07/27/20 [Rx Confirmed 10/24/20 Last Taken 10/22/20 09:00] atorvastatin 20 mg tablet See Rx Instructions .ROUTE .COMPLEX #30 unknown measurement unit code: tablet 08/22/20 [Rx Confirmed 10/23/20 Last Taken 10/22/20 08:00] benazepril 10 mg tablet See Rx Instructions .ROUTE .COMPLEX #60 unknown m easurement unit code: tablet 08/22/20 [Rx Confirmed 10/23/20 Last Taken 10/22/20 09:00] trazodone 50 mg tablet 100 mg PO QHS #60 tab 08/22/20 [Rx Confirmed 10/24/20 Last Taken 10/21/20 21:00] sertraline 100 mg tablet See Rx Instructions .ROUTE .COMPLEX #60 tablet 08/23/20 [Rx Confirmed 10/24/20 Last Taken 10/22/20 09:00] metoprolol succinate 50 mg tablet,extended release 24 hr See Rx Instructions .ROUTE .COMPLEX #60 tablet 09/20/20 [Rx Confirmed 10/23/20 Last Taken 10/22/20 09:00] hydrochlorothiazide 25 mg tablet See Rx Instructions .ROUTE .COMPLEX #30 tab 09/26/20 [Rx Confirmed 10/23/20 Last Taken 10/22/20 09:00] metformin 500 mg tablet,extended release 24 hr 500 mg PO QDAY #30 tab 10/04/20 [Rx Confirmed 10/23/20 Last Taken Unknown] ondansetron 4 mg PO Q6H PRN #12 tab 10/23/20 [Rx Confirmed 10/23/20 Last Taken 10/23/20 21:00] omeprazole magnesium 20 mg PO QDAY 10/24/20 [History Confirmed 10/24/20 Last Taken 10/22/20] dexamethasone 6 mg PO DAILY #5 tab 10/27/20 [Rx Last Taken Unknown] COURSE Hospital Course Hospital course: . Discharge diagnosis: COVID-19 pneumonia Time Spent with Patient Time attestation: Total time spent providing and/or coordinating discharge services: EXAM Constitutional Vitals: Temp Pulse Resp BP Pulse Ox 97.0 F 60 16 103/60 96 10/27/20 08:00 10/27/20 08:00 10/27/20 08:00 10/27/20 08:00 10/27/20 08:00 Discharge Data Data Completed and Pending Labs on day of discharge: Labs from last 24 hours 10/27/20 10/27/20 05:55 05:55 WBC 7.1 RBC 4.15 Hgb 11.7 L Hct 36.6 MCV 88.2 MCH 28.2 MCHC 32.0 RDW 13.1 Plt Count 193 MPV 10.8 H Neut % (Auto) 70.2 Lymph % (Auto) 20.1 Banks % (Auto) 9.3 Eos % (Auto) 0 Baso % (Auto) 0.4 Lymph # (Auto) 1.42 L [place] # (Auto) 0.66 Eos # (Auto) 0 Baso # (Auto) 0.03 Absolute Neutrophils 4.97 Sodium 142 Potassium 3.9 Chloride 104 Carbon Dioxide 28 Anion Gap 10.0 BUN 20 Creatinine 0.7 GFR Calculation 102 Glucose 106 H Uric Acid 6.4 Calcium 8.3 L Phosphorus 3.1 Magnesium 1.8 Total Bilirubin 0.5 Direct Bilirubin < 0.2 GGT 22 AST 18 ALT 22 Alkaline Phosphatase 64 Lactate Dehydrogenase 190 Total Protein 5.3 L Albumin 3.2 Globulin 2.1 L Albumin/Globulin Ratio 1.5 Triglycerides 66 Discharge Plan Patient/Caregiver Discharge Instructions Activity: increase activity as tolerated Diet: Consistent Carbohydrate Activity Restrictions/Additional Instructions: Maintain COVID-19 precautions/quarantine for additional 7 days Continue dexamethasone for 5 days Return to ER if worsening fever chills shortness of breath Prescriptions: New dexamethasone 4 mg Tablet 6 mg PO DAILY Qty: 5 RF: 0 Continued sertraline 100 mg tablet See Rx Instructions .ROUTE .COMPLEX Qty: 60 RF: 4 metformin 500 mg tablet extended release 24 hr 500 mg PO QDAY Qty: 30 RF: 0 tolterodine 4 mg capsule,extended release 24hr 4 mg PO QDAY Qty: 30 RF: 11 potassium chloride 10 mEq tablet extended release 20 meq PO .COMPLEX Qty: 90 RF: 3 trazodone 50 mg tablet 100 mg PO QHS Qty: 60 RF: 3 atorvastatin 20 mg tablet See Rx Instructions .ROUTE .COMPLEX Qty: 30 RF: 3 benazepril 10 mg tablet See Rx Instructions .ROUTE .COMPLEX Qty: 60 RF: 1 metoprolol succinate 50 mg tablet extended release 24 hr See Rx Instructions .ROUTE .COMPLEX Qty: 60 RF: 0 hydrochlorothiazide 25 mg tablet See Rx Instructions .ROUTE .COMPLEX Qty: 30 RF: 0 ferrous gluconate 324 mg (37.5 mg iron) tablet 324 mg PO QDAY RF: 0 ondansetron 4 mg tablet,disintegrating 4 mg PO Q6H PRN (Reason: nausea and vomiting) Qty: 12 RF: 0 omeprazole magnesium 20 mg Capsule,Delayed Release(Dr/Ec) 20 mg PO QDAY RF: 0 Follow Up Plan Follow up with: Man Santos ARNP [Primary Care Provider] - Patient Disposition: Home, Self-Care Prognosis: Fair Rehab Potential: Fair I certify that the patient requires SNF services: No Overall status at discharge: patient is progressing back to baseline Discharge Orders: Discharge Order (Routine); Ordered 10/27/20 Ordered By: Zain JACKSON VTE Deep Vein Thrombosis/Pulmonary Embolism Present on Admission: No
== END 2020-10-27 12:55 | disposition home or self-care (01) | DRG 177 ==
LOC: ED 15:27 → MEDSUR 15:27
PROVIDERS: ADMIT Internal Medicine; ATTEND Internal Medicine